=== PATIENT | female | born 1995 | race Caucasian/White ===

== ENCOUNTER 2024-10-12 09:21 | Emergency (ER) | payer SELFPAY ==
[~2024-10-12] VITALS: Ht 170.2 cm; Wt 73.0 kg
[2024-10-12 09:23] VITALS: BP 147/104; PULSE 80; RESP 18; TEMP 36.7; O2SAT 96
[2024-10-12] MEDS: ACETAMINOPHEN 325MG TABLET PO ONE (10:57)
[2024-10-12] MEDS: TETANUS, DIPHTHERIA, PERTUSSIS VAC/PF 0.5ML (>10YR OLD) IM ONE (10:57)
[2024-10-12] MEDS: BACITRACIN ZINC OINT UDPKT TOP ONE (10:58)
[2024-10-12] MEDS ORDERED: BO1 TP (11:01)
[2024-10-12] MEDS: LIDOCAINE HCL 1% 20ML VIAL INFIL ONE (11:05)
== END 2024-10-12 12:33 | disposition home or self-care (01) ==
LOC: ER 09:21
DX: S61.211A Laceration without foreign body of left index finger without damage to nail, initial encounter (principal); I10 Essential (primary) hypertension; W26.0XXA Contact with knife, initial encounter; Y93.89 Activity, other specified; Y92.89 Other specified places as the place of occurrence of the external cause; Y99.8 Other external cause status
CPT/HCPCS: 90715; 12001; 90471; 99283; J3490; Z7610 ×2

== ENCOUNTER 2024-10-19 15:02 | Emergency (ER) | payer SELFPAY ==
[~2024-10-19] VITALS: Ht 154.9 cm; Wt 78.0 kg
[~2024-10-19 15:02] MED LIST: BO1 TP
[2024-10-19 15:06] VITALS: O2SAT 99
[2024-10-19 15:10] VITALS: BP 114/71; PULSE 83; RESP 18; TEMP 36.9; O2SAT 100
== END 2024-10-19 16:06 | disposition left against medical advice (07) ==
LOC: ER 15:02
DX: S61.012A Laceration without foreign body of left thumb without damage to nail, initial encounter (principal); X58.XXXD Exposure to other specified factors, subsequent encounter
CPT/HCPCS: 99282